=== PATIENT | female | born 1980 | race Caucasian/White ===

== ENCOUNTER 2024-06-22 11:51 | Emergency (ER) | payer SELFPAY ==
--- OUTSIDE RECORDS SUMMARY | 2024-06-22 11:56 | XMS_ITS | Patient Health Summary ---
Author Organization [facility] Address [address] [place] [address] Care Team Providers Care Scrap Crusher Name Role Phone Farhat Hodge MD Primary Care Provider [phone] Note from [facility],non-owned Affiliates and Associated Physician Practices is amultiple site organization consisting of ambulatory clinics and hospital sitesin [place], [place], [place] and [place]. This disclosure is being madepursuant to the Care Everywhere program and may not contain all information available regarding this patient. Last updated 18.[facility] Allergies * Cefaclor(Urticaria) -Medium Criticality * Carisoprodol(Urticaria) -Medium Criticality * Sulfa Drugs(Urticaria) -Medium Criticality Medications * Be aware that medications may not be up to date on this document. Alwaysverify current medications with the patient. * albuterol ER 12hr (VOSPIRE ER) 4 MG tablet Take 4 mg by mouth 2 times daily * fluticasone hfa 110 (FLOVENT HFA 110) 110 MCG/ACT inhaler Inhale 2 Puffs by mouth 2 times daily * triamcinolone (NASACORT AQ) 55 MCG/ACT nasal inhaler [place] 1 [place] into each nostril once daily * ALPRAZolam (XANAX) 0.5 MG tablet Take 0.5 mg by mouth 3 times daily as needed for Anxiety * omeprazole (PRILOSEC) 40 MG capsule Take 40 mg by mouth daily before breakfast Social History Tobacco Use Types Packs/Day Years Used Date Smoking Tobacco: Never Tobacco Cessation:Counseling Given: No Alcohol Use Standard Drinks/Week Comments No 0 (1 standard drink = 0.6 oz pur e alcohol) Sex and Gender Information Value Date Recorded Sex Assigned at Not on file Gender Identity Not on file Sexual Orientation Not on file Last Filed Vital Signs Vital Sign Reading Time Taken Comments Blood Pressure 133/65 03/06/2016 4:00 PM CDT Pulse 105 03/06/2016 3:50 PM CDT Temperature 36.8 C (98.2 F) 03/06/2016 4:03 PM CDT Respiratory Rate 12 03/06/2016 3:50 PM CDT Oxygen Saturation 100% 03/06/2016 3:50 PM CDT Inhaled Oxygen Concentration - - Weight 61.2 kg (135 lb) 03/06/2016 2:24 PM CDT Height 157.5 cm (5' 2 ) 03/06/2016 2:24 PM CDT Body Mass Index 24.69 03/06/2016 2:24 PM CDT Procedures * CARDIAC RHYTHM STRIP ORDER(Performed 03/07/2016) * XR CHEST 2VW(Performed 03/06/2016) Performed for Palpitations * URINALYSIS REFLEX MICROSCOPIC REFLEX CULTURE(Performed 03/06/2016) * TSH(Performed 03/06/2016) * CBC W AUTO DIFFERENTIAL(Performed 03/06/2016) * MAGNESIUM BLOOD(Performed 03/06/2016) * D-DIMER(Performed 03/06/2016) * COMPREHENSIVE METABOLIC PANEL(Performed 03/06/2016) * TROPONIN I(Performed 03/06/2016) * HCG URINE QUALITATIVE - POINT OF CARE(Performed 03/06/2016) * EKG 12-LEAD(Performed 03/06/2016) Performed for Palpitations Results * CARDIAC RHYTHM STRIP ORDER (03/07/2016 9:42 PM CDT) Narrative 03/07/2016 9:42 PM CDT Ordered by an unspecified provider. Scanned Document CARDIAC SERVICES ORD ERABLES * XR CHEST PA AND LATERAL (03/06/2016 3:01 PM CDT) Anatomical Region Laterality Modality Chest Radiographic Mima ging 03/06/2016 3:05 PM CDT Impressions 03/06/2016 3:06 PM CDT Clear lungs. Narrative 03/06/2016 3:06 PM CDT Chest x-ray 2 views. HISTORY: Palpitations. 2 views of the chest show normal heart size with normal vessels. Lungs are clear. Procedure Note Juan C Sweet MD - 03/06/2016 Chest x-ray 2 views. HISTORY: Palpitations. 2 views of the chest show normal heart size with normal vessels. Lungs are clear. IMPRESSION Clear lungs. Vishal Langston MD DIAGNOSTIC IMAGING O RDERABLES * URINALYSIS ROUTINE W/REFLEX TO CULTURE (03/06/2016 2:44 PM CDT) Color UA Yellow Straw, Yellow, Dark Yellow 03/06/2016 2:54 PM CDT [facility] Clarity UA Clear 03/06/2016 2:54 PM CDT [facility] Specific [place] UA <=1.005 1.005 - 1.030 03/06/2016 2:54 PM CDT [facility] pH UA 7.0 5.0 - 8.0 pH 03/06/2016 2:54 PM CDT [facility] Protein UA Negative Negative 03/06/2016 2:54 PM CDT [facility] Blood UA Negative Negative 03/06/2016 2:54 PM CDT [facility] Leukocyte UA Negative Negative 03/06/2016 2:54 PM CDT [facility] Nitrite UA Negative Negative 03/06/2016 2:54 PM CDT [facility] Glucose UA Negative Negative 03/06/2016 2:54 PM CDT [facility] Ketone UA Negative Negative 03/06/2016 2:54 PM CDT [facility] Bilirubin UA Negative Negative 03/06/2016 2:54 PM CDT [facility] Urobilinogen UA 0.2 0.1 - 1.0 EU/dL 03/06/2016 2:54 PM CDT [facility] Reflex Status Culture not indicated 03/06/2016 2:54 PM CDT [facility] Urine URINE SPECIMEN OBTAINED BY CLEAN CATCH PROCEDURE / Unknown 03/06/2016 2:44 PM CDT 03/06/2016 2:50 PM CDT Vishal Langston MD LAB - URINALYSIS ORD ERABLES [facility] [address] [place] [address] * TROPONIN I (03/06/2016 2:44 PM CDT) Pathologist [facility] [place] Troponin I <0.015 0.000 - 0.049 ng/mL 03/06/2016 3:10 PM CDT [facility] Blood BLOOD SPECIMEN / Unknown 03/06/2016 2:44 PM CDT 03/06/2016 2:50 PM CDT [facility] - 03/06/2016 3:10 PM CDT Note: Diagnosis of myocardial infarction requires symptoms of ischemia or EKG changes of ischemia and Troponin I >99th of normal (0.05 ng/mL). Troponin should be drawn on initial assessment and 3-6 hours later as clinically indicated. Any condition resulting in myocardial cell damage can increase cardiac troponin levels. In addition to myocardial infarction, these include but are not limited to congestive heart failure (CHF), arrhythmia, myocarditis, and non-cardiac related causes such as pulmonary embolism, renal failure and sepsis. Vishal Langston MD LAB - CHEMISTRY BOOM BELTRAN [facility] Organization Address City/State/[facility] Co de Phone Number [facility] [address] [place] [address] * D-DIMER (03/06/2016 2:44 PM CDT) [facility] D-Dimer 0.45 0.17 - 0.5 mg/L FEU 03/06/2016 3:03 PM CDT [facility] Blood BLOOD SPECIMEN / Unknown 03/06/2016 2:44 PM CDT 03/06/2016 2:50 PM CDT [facility] - 03/06/2016 3:03 PM CDT The [employer] D-Dimer assay is intended for use as an aid in diagnosis of venous thromboembolism [(VTE): deep vein thrombosis (DVT), pulmonary embolism (PE), and disseminated intravascular coagulation (DIC)], and has received U.S. Food and Drug Administration (FDA) approval to exclude VTE in patients with low or moderate pretest probability of PE or DVT (per Wells' rules). At a clinical cut-off value 0.50 mg/L FEU, the Negative Predictive Value of this assay is 99.8% for excluding PE and 100% for excluding DVT. A very low percentage of patients with VTE may yield D-Dimer results below the cut-off value. An elevated D-Dimer result has low specificity (40.4% for PE, 35.5% for DVT) and is a poor predictor of VTE. An elevated D-Dimer result may indicate DIC in the appropriate clinical setting. Results of this test should always be interpreted in conjunction with the patient's medical history, clinical presentation, and other findings. Vishal Langston MD LAB - COAGULATION OR DERABLES Performing Organization Address City/State/[facility] Co de Phone Number [facility] [address] [place] [address] * (ABNORMAL) CBC W AUTO DIFFERENTIAL (03/06/2016 2:44 PM CDT) WBC 5.7 4.4 - 10.7 x10E9/L 03/06/2016 2:52 PM CDT [facility] WBC Corrected x10E9/L 03/06/2016 2:52 PM CDT [facility] RBC 4.75 3.80 - 5.20 x10E12/L 03/06/2016 2:52 PM CDT [facility] Hemoglobin 13.8 12.0 - 15.6 gm/dL 03/06/2016 2:52 PM CDT [facility] Hematocrit 40.4 35.9 - 45.5 % 03/06/2016 2:52 PM CDT [facility] MCV 85.1 80.7 - 98.3 fl 03/06/2016 2:52 PM CDT [facility] MCH 29.1 26.7 - 34.0 pg 03/06/2016 2:52 PM CDT [facility] MCHC 34.2 30.8 - 35.9 gm/dL 03/06/2016 2:52 PM CDT [facility] Platelet Count 304 153 - 416 x10E9/L 03/06/2016 2:52 PM CDT [facility] RDW-CV 12.2 12.1 - 14.9 % 03/06/2016 2:52 PM CDT [facility] MPV 9.8 9.4 - 12.9 fl 03/06/2016 2:52 PM CDT [facility] Neutrophils % 72.7 44.0 - 73.0 % 03/06/2016 2:52 PM CDT [facility] Lymphocytes % 18.6(L) 20.0 - 43.0 % 03/06/2016 2:52 PM CDT [facility] Monocytes % 7.0 5.0 - 13.0 % 03/06/2016 2:52 PM CDT [facility] Eosinophils % 1.0 0.0 - 6.0 % 03/06/2016 2:52 PM CDT [facility] Basophils % 0.5 0.0 - 2.0 % 03/06/2016 2:52 PM CDT [facility] Immature Granulocytes 0.2 0 - 1 % 03/06/2016 2:52 PM CDT [facility] Neutrophil Absolute 4.17 2.01 - 7.14 x10E9/L 03/06/2016 2:52 PM CDT [facility] Lymphocytes Absolute 1.07 1.07 - 3.94 x10E9/L 03/06/2016 2:52 PM CDT [facility] Monocytes Absolute 0.40 0.26 - 1.07 x10E9/L 03/06/2016 2:52 PM CDT [facility] Eosinophils Absolute 0.06 0 - 0.47 x10E9/L 03/06/2016 2:52 PM CDT [facility] Basophils Absolute 0.03 0 - 0.08 x10E9/L 03/06/2016 2:52 PM CDT [facility] Immature Granulocytes Absolute 0.01 0.00 - 0.06 x10E9/L 03/06/2016 2:52 PM CDT [facility] nRBC Auto 0 /100 WBC 03/06/2016 2:52 PM CDT [facility] Blood BLOOD SPECIMEN / Unknown 03/06/2016 2:44 PM CDT 03/06/2016 2:50 PM CDT Vishal Langston MD LAB - HEMATOLOGY ORD ERABLES [facility] [address] [place] [address] * COMPREHENSIVE METABOLIC PANEL (03/06/2016 2:44 PM CDT) [facility] Glucose 105 74 - 106 mg/dL 03/06/2016 3:10 PM CDT [facility] Sodium 141 136 - 145 mmol/L 03/06/2016 3:10 PM CDT [facility] Potassium 3.7 3.5 - 5.1 mmol/L 03/06/2016 3:10 PM CDT [facility] Chloride 106 98 - 107 mmol/L 03/06/2016 3:10 PM CDT [facility] CO2 28 22 - 31 mmol/L 03/06/2016 3:10 PM CDT [facility] Calcium 9.3 8.5 - 10.1 mg/dL 03/06/2016 3:10 PM CDT [facility] Anion Gap 7 5 - 20 mmol/L 03/06/2016 3:10 PM CDT [facility] BUN 7 7 - 21 mg/dL 03/06/2016 3:10 PM CDT [facility] Creatinine 0.74 0.50 - 1.30 mg/dL 03/06/2016 3:10 PM CDT [facility] Alkaline Phosphatase 76 38 - 126 U/L 03/06/2016 3:10 PM CDT [facility] ALT 24 13 - 61 U/L 03/06/2016 3:10 PM CDT [facility] AST 13 5 - 40 U/L 03/06/2016 3:10 PM CDT [facility] Protein Total 8.0 6.4 - 8.2 gm/dL 03/06/2016 3:10 PM CDT [facility] Albumin 4.0 3.4 - 5.0 gm/dL 03/06/2016 3:10 PM CDT [facility] Bilirubin Total 0.3 0.2 - 1.0 mg/dL 03/06/2016 3:10 PM CDT [facility] eGFR by MDRD >60 >60 mL/min/1.7 3m2 03/06/2016 3:10 PM CDT [facility] eGFR by MDRD >60 >60 mL/min/1.7 3m2 03/06/2016 3:10 PM CDT [facility] Blood BLOOD SPECIMEN / Unknown 03/06/2016 2:44 PM CDT 03/06/2016 2:50 PM CDT Vishal Langston MD LAB - CHEMISTRY BOOM BELTRAN [facility] Organization Address City/State/ZIP Co de Phone Number [facility] [address] [place] [address] * MAGNESIUM BLOOD (03/06/2016 2:44 PM CDT) Pathologist [facility] [place] Magnesium 2.3 1.6 - 2.6 mg/dL 03/06/2016 3:10 PM CDT [facility] Blood BLOOD SPECIMEN / Unknown 03/06/2016 2:44 PM CDT 03/06/2016 2:50 PM CDT Vishal Langston MD LAB - CHEMISTRY BOOM BELTRAN Performing Organization Address City/[facility]/ZIP Co de Phone Number [facility] [address] [place] [address] * TSH (03/06/2016 2:44 PM CDT) [facility] TSH 1.41 0.358 - 3.740 uIU/mL 03/06/2016 3:15 PM CDT [facility] Blood BLOOD SPECIMEN / Unknown 03/06/2016 2:44 PM CDT 03/06/2016 2:50 PM CDT Vishal Langston MD LAB - CHEMISTRY BOOM BELTRAN Performing Organization Address [facility] Co de Phone Number [facility] [address] [place] [address] * HCG URINE QUALITATIVE - POINT OF CARE (IP) (03/06/2016 2:43 PM CDT) [facility] HCG Qual Urine Negative Negative [facility] POCT TESTING QC Verified Yes Yes [facility] POC T TESTING Urine URINE / Unknown 03/06/2016 2 :43 PM CDT Vishal Langston MD LAB - POINT OF CARE ORDERABLES Performing Organization Address [facility] Co de Phone Number [facility] POCT TESTING [address] [place] [address] * EKG 12-LEAD (03/06/2016 2:25 PM CDT) [facility] Ventricular Rate 130 BPM [facility] MUSE Atrial Rate 130 BPM [facility] P-R Interval 150 ms [facility] MUSE QRS Duration ms 78 ms [facility] MUSE Q-T Interval ms 300 ms [facility] MUSE QTC Calculation (Bezet) 441 ms [facility] MUSE Calculated P [place] 64 degrees [facility] MUSE Calculated R [place] 35 degrees [facility] MUSE Calculated T [place] 72 degrees [facility] Interpretation EKG SINUS TACHYCARDIA POSSIBLE LEFT ATRIAL ENLARGEMENT BORDERLINE ECG NO PREVIOUS ECGS AVAILABLE Confirmed by MD SHABBIR, CURTIS Pino ([id number]) on 03/07/2016 7:21:51 AM [facility] MUSE 03/06/2016 2:25 PM CDT 03/07/2016 7:21 AM CDT Vishal Langston MD ECG ORDERABLES [facility] M[facility] Care Teams Scrap Crusher Relationship Specialty Start Date End Date Farhat Hodge MD [facility] [place] [address] PCP - General Family Medicine 03/06/16
--- OUTSIDE RECORDS SUMMARY | 2024-06-22 11:56 | XMS_ITS | Clinical Summary ---
Author Organization [facility] Address [address] [place] [address] Care Team Providers Care Gate Agent Name Role Phone Farhat Hodge MD Primary Care Provider [phone] Source Comments [facility],non-owned Affiliates and Associated Physician Practices is amultiple site organization consisting of ambulatory clinics and hospital sitesin [place], [place], [place] and [place]. This disclosure is being madepursuant to the Care Everywhere program and may not contain all information available regarding this patient. Last updated 18.[facility] Allergies Active Allergy Reactions Criticality Noted Date Comments Cefaclor Urticaria Medium 03/06/2016 Carisoprodol Urticaria Medium 03/06/2016 Sulfa Drugs Urticaria Medium 03/06/2016 Medications * Be aware that medications may not be up to date on this document. Alwaysverify current medications with the patient. Medication Sig Dispensed Refills Start Date End Date Status albuterol ER 12hr (VOSPIRE ER) 4 MG tablet Take 4 mg by mouth 2 times daily Active fluticasone hfa 110 (FLOVENT HFA 110) 110 MCG/ACT inhaler Inhale 2 Puffs by mouth 2 times daily Active triamcinolone (NASACORT AQ) 55 MCG/ACT nasal inhaler [place] 1 [place] into each nostril once daily Active ALPRAZolam (XANAX) 0.5 MG tablet Take 0.5 mg by mouth 3 times daily as needed for Anxiety Active omeprazole (PRILOSEC) 40 MG capsule Take 40 mg by mouth daily before breakfast Active Social History Tobacco Use Types Packs/Day Years [...] Mass Index 24.69 03/06/2016 2:24 PM CDT Plan of Treatment Health Maintenance Due Date Last Done Comments LIPID TESTING 1979 MAMMOGRAM 1979 PAP SMEAR 1979 HIV SCREENING 08/29/1994 HEPATITIS C SCREENING 08/25/1997 DTAP/TDAP/TD VACCINES (1 - Tdap) 08/29/1998 HEPATITIS B VACCINE (1 of 3 - 19+ 3-dose series) 08/29/1998 COVID-19 VACCINE ( - 2023-2 5 season) 2024 INFLUENZA VACCINE (#1) 2024 DEPRESSION SCREENING 05/14/2024 ZOSTER VACCINE (1 of 2) 08/29/2029 HIB VACCINE Aged Out No longer eligi ble based on patient's age to complete this topic HPV VACCINE Aged Out No longer eligi ble based on patient's age to complete this topic MENINGOCOCCAL (Group B) VACCINE Aged Out No longer eligible based on patient's age to complete this topic MENINGOCOCCAL VACCINE Aged Out No nir otto eligible based on patient's age to complete this topic PNEUMOCOCCAL VACCINE Aged Out No long er eligible based on patient's age to complete this topic Care Teams Gate Agent Relationship Specialty Start Date End Date Farhat Hodge MD [address] [place] [id number] PCP - General Family Medicine 03/06/16
--- OUTSIDE RECORDS SUMMARY | 2024-06-22 11:56 | XMS_ITS | Clinical Summary ---
Author Organization [facility] [address] Address [address] [place] [address] Phone Care Team Providers Care Search Lead Name Role Phone Farhat Hodge MD Primary Care Provider [phone] Allergies Active Allergy Reactions Criticality Noted Date Comments Carisoprodol Hives Medium 04/17/2024 Cefaclor Hives Medium 04/17/2024 Sulfa Unknown 04/17/2024 Grandmother and mother allergic, has always been told not to take. Medications nitrofurantoin monohydrate (MACROBID) 100 mg capsule Take 1 capsule (100 mg total) by mouth 2 (two) times a day 10 capsule 04/17/2024 Active Encounters Date Type Department Care Team Description 04/17/2024 7:35 PM MEDICAID PLAN COMPLIANCE DIRECTOR - 04/17/2024 8:55 PM [facility] Emergency [address] [address] Urinary tract infection in female (Primary Dx); Uncontrolled hypertension Discharge Disposition: Discharge to home or self care from Last 3 Months Social History Tobacco Use Types Packs/Day Years Used Date Smoking Tobacco: Never Assessed Personal Safety Answer Date Recorded Have you ever been in or are you currently in a harmful physical or emotional relationship or is someone making you feel afraid or unsafe? Denies 04/17/2024 Comments Unknown Sex and Gender Information Value Date Recorded Sex Assigned at Not on file Legal Sex Female 8:13 AM CDT Gender Identity Not on file Sexual Orientation Not on file Last Filed Vital Signs Vital Sign Reading Time Taken Comments Blood Pressure 148/79 04/17/2024 8:20 PM MEDICAID PLAN COMPLIANCE DIRECTOR Pulse 87 04/17/2024 8:20 PM MEDICAID PLAN COMPLIANCE DIRECTOR Temperature 37.1 C (98.8 F) 04/17/2024 2:18 PM MEDICAID PLAN COMPLIANCE DIRECTOR Respiratory Rate 16 04/17/2024 8:20 PM MEDICAID PLAN COMPLIANCE DIRECTOR Oxygen Saturation 97% 04/17/2024 8:20 PM MEDICAID PLAN COMPLIANCE DIRECTOR Inhaled Oxygen Concentration - - Weight 60 kg (132 lb 4.4 oz) 04/17/2024 2:18 PM MEDICAID PLAN COMPLIANCE DIRECTOR Height 157.5 cm (5' 2 ) 04/17/2024 2:18 PM MEDICAID PLAN COMPLIANCE DIRECTOR Body Mass Index 24.19 04/17/2024 2:18 PM MEDICAID PLAN COMPLIANCE DIRECTOR Plan of Treatment Health Maintenance Due Date Last Done Comments Breast Cancer Screening-Mammogram 1979 Cervical Cancer Screening 1979 Depression Screening 1979 Hepatitis C Screening 1979 DTaP/Tdap/Td Vaccine (1 - Tdap) 08/29/1990 Varicella Vaccines (1 of 2 - 13+ 2-dose series) 08/29/1992 Hepatitis B Screening 08/29/1997 Regular Well Visit/Exam 18-64 08/29/1997 Covid-19 Vaccine (3 - 2023-2 5 season) 2024 05/09/2021, 04/12/2021 Influenza Vaccine (#1) 2024 HPV Vaccines Aged Out No longer eligi ble based on patient's age to complete this topic Pneumococcal vaccine <65 Aged Out No longer eligible based on patient's age to complete this topic Procedures Procedure Name Priority Date/Time Associated Diagnosis Comments TROPONIN T HIGH-SENSITIVITY 2-HOUR Timed 04/17/2024 5:24 PM MEDICAID PLAN COMPLIANCE DIRECTOR URINALYSIS, MICROSCOPIC ONLY STAT 04/17/2024 3:00 PM MEDICAID PLAN COMPLIANCE DIRECTOR URINALYSIS AND REFLEX TO MICROSCOPIC AND CULTURE STAT 04/17/2024 3:00 PM MEDICAID PLAN COMPLIANCE DIRECTOR EGFR STAT 04/17/2024 2:56 PM MEDICAID PLAN COMPLIANCE DIRECTOR DIFFERENTIAL AUTO STAT 04/17/2024 2:5 6 PM MEDICAID PLAN COMPLIANCE DIRECTOR TROPONIN T HIGH-SENSITIVITY SERIES (BASELINE, 2HR, 4HR, 6HR) STAT 04/17/2024 2:56 PM MEDICAID PLAN COMPLIANCE DIRECTOR COMPREHENSIVE METABOLIC PANEL STAT 04/17/2024 2:56 PM MEDICAID PLAN COMPLIANCE DIRECTOR CBC WITH AUTO DIFFERENTIAL STAT 04/17/2024 2:56 PM MEDICAID PLAN COMPLIANCE DIRECTOR ECG 12-LEAD STAT 04/17/2024 2:49 PM MEDICAID PLAN COMPLIANCE DIRECTOR from Last 3 Months Results * Troponin T high-sensitivity 2-hour (04/17/2024 5:24 PM MEDICAID PLAN COMPLIANCE DIRECTOR) Trop T hs <6 <=14 ng/L Comment: Interpretive Data For further hscTnT resources including the diagnostic algorithm and an aid in interpretation, copy and paste this link: [email or web address].testcatalog.org/show/[email or web address] Current Interpretive Data last revised 2020. Trop T hs delta 0 ng/L [place] Trop T hs interp Insignificant [place] Blood 04/17/2024 5:24 PM MEDICAID PLAN COMPLIANCE DIRECTOR 04/17/2024 5:32 PM MEDICAID PLAN COMPLIANCE DIRECTOR Abbie COLE LAB BLOOD ORDERABLES Final Result [place] [address] [facility] Department [place] [address] * (ABNORMAL) Urinalysis reflex to microscopic and culture Urine (04/17/2024 3:00 PM MEDICAID PLAN COMPLIANCE DIRECTOR) Color, ur Straw Yellow Clarity, ur Clear Clear [place] Specific gravity, ur 1.004 1.003 - 1.030 [place] pH, urine 6.5 [place] Comment: Interpretive Data U rine pH is affected by diet, medications, systemic acid-base disturbances, and renal tubular function. pH may affect urinary stone formation. For example, urine pH below 6.0 may help reduce the tendency for calcium phosphate stones and pH greater than 6.0 may reduce the tendency for uric acid stone formation. Source: [facility] Current Interpretive Data was last revised on 2017 Protein, ur ql Negative Negative [facility] Glucose, ur ql Negative Negative [facility] Ketones, ur Negative Negative [facility] Bilirubin, ur Negative Negative [facility] Blood, ur Negative Negative [facility] Urobilinogen, ur <2.0 <2.0 mg/dL [facility] Nitrite, ur Negative Negative [facility] Leukocyte esterase, ur 2+(A) Negative [facility] UA reflex comment Reflex to microscopic UA will be performed. [facility] Urine 04/17/2024 3:00 PM MEDICAID PLAN COMPLIANCE DIRECTOR 04/17/2024 3:08 PM MEDICAID PLAN COMPLIANCE DIRECTOR Abbie COLE LAB MICROBIOLOGY - GENERAL ORDERABLES Final Result Performing Organization Address [facility] de Phone Number [address] [address] * (ABNORMAL) Urinalysis, microscopic only (04/17/2024 3:00 PM MEDICAID PLAN COMPLIANCE DIRECTOR) WBC, ur 6-10(A) 0 - 5 /HPF RBC, ur 0-2 0 - 2 /HPF [facility] Epithelial cells, squamous, ur 6-10(A) 0 - 5 /HPF [facility] Comment:Suggestive of contam ination. Consider recollection by clean catch. Bacteria, ur 1+(A) [facility] Culture Reflex Comment Reflex conditions for urine culture (WBC >10) not met. [facility] Urine 04/17/2024 3:00 PM MEDICAID PLAN COMPLIANCE DIRECTOR 04/17/2024 3:08 PM MEDICAID PLAN COMPLIANCE DIRECTOR Abbie COLE LAB URINE ORDERABLES Final Result Performing Organization Address [facility] Co de Phone Number [address] [address] * Troponin T high-sensitivity series (baseline, 2hr, 4hr, 6hr) (04/17/2024 2:56 PM MEDICAID PLAN COMPLIANCE DIRECTOR) Trop T hs <6 <=14 ng/L Comment: Interpretive Data For further hscTnT resources including the diagnostic algorithm and an aid in interpretation, copy and paste this link: https://nrl.testcatalog.org/show/[email or web address] Current Interpretive Data last revised 2020. Blood 04/17/2024 2:56 PM MEDICAID PLAN COMPLIANCE DIRECTOR 04/17/2024 2:59 PM MEDICAID PLAN COMPLIANCE DIRECTOR Abbie COLE LAB BLOOD ORDERABLES Final Result Performing Organization Address [facility] Co de Phone Number [place] [address] [address] * eGFR (04/17/2024 2:56 PM MEDICAID PLAN COMPLIANCE DIRECTOR) [facility] eGFR >90 >=60 mL/min/1. 73 m2 Comment: Interpretive Data Reference Interval Normal >/= 90 mL/min/1.73m2 Mildly decreased* 60 - 89 mL/min/1.73m2 Mildly to moderately decreased 45 - 59 mL/min/1.73m2 Moderately to severely decreased 30 - 44 mL/min/1.73m2 Severely decreased 15 - 29 mL/min/1.73m2 Kidney Failure < 15 mL/min/1.73m2 *Relative to young adult level Estimated glomerular filtration rate is determined by the 2020 CKD-EPI equation recommended by the National Kidney Foundation (A Unifying Approach to GFR Estimation: Recommendations of the NKF-ASK Task Force on Reassessing the Inclusion of Race in Diagnosing Kidney Disease, JASN 2020). The CKD-EPI equation should not be used for patients with unstable renal function and has not been validated in children and those over 70. Current interpretive data was last reviewed 2021. Blood 04/17/2024 2:56 PM MEDICAID PLAN COMPLIANCE DIRECTOR 04/17/2024 2:59 PM MEDICAID PLAN COMPLIANCE DIRECTOR Abbie COLE LAB BLOOD ORDERABLES Final Result Performing Organization Address [facility] Co de Phone Number [place] [address] [place] [employer] [place] [address] * Differential, auto (04/17/2024 2:56 PM MEDICAID PLAN COMPLIANCE DIRECTOR) Neutrophil abs 5.6 1.5 - 6.5 K/cumm Imm gran abs 0.0 0.0 - 0.1 K/cumm [facility] Lymphocyte abs 1.2 0.8 - 3.3 K/cumm [facility] Monocyte abs 0.5 0.2 - 0.8 K/cumm [facility] Eosinophil abs 0.1 0.0 - 0.5 K/cumm [facility] Basophil abs 0.0 0.0 - 0.1 K/cumm [facility] Neutrophil pct 75.6 % [facility] Comment: Interpretive Data Percent cell count reference ranges are not reported, since discordance with absolute values may lead to misinterpretation of CBC data. Current Interpretive Data was last revised on 2017. Imm gran pct 0.3 % [facility] Comment: Interpretive Data Percent cell count reference ranges are not reported, since discordance with absolute values may lead to misinterpretation of CBC data. Current Interpretive Data was last revised on 2017. Lymphocyte pct 16.0 % [facility] Comment: Interpretive Data Percent cell count reference ranges are not reported, since discordance with absolute values may lead to misinterpretation of CBC data. Current Interpretive Data was last revised on 2017. Monocyte pct 6.5 % [facility] Comment: Interpretive Data Percent cell count reference ranges are not reported, since discordance with absolute values may lead to misinterpretation of CBC data. Current Interpretive Data was last revised on 2017. Eosinophil pct 1.2 % [facility] Comment: Interpretive Data Percent cell count reference ranges are not reported, since discordance with absolute values may lead to misinterpretation of CBC data. Current Interpretive Data was last revised on 2017. Basophil pct 0.4 % [facility] Comment: Interpretive Data Percent cell count reference ranges are not reported, since discordance with absolute values may lead to misinterpretation of CBC data. Current Interpretive Data was last revised on 2017. Blood 04/17/2024 2:56 PM MEDICAID PLAN COMPLIANCE DIRECTOR 04/17/2024 2:59 PM MEDICAID PLAN COMPLIANCE DIRECTOR Abbie COLE LAB BLOOD ORDERABLES Final Result [place] [id number] [facility] [place] [address] * CBC with auto differential (04/17/2024 2:56 PM MEDICAID PLAN COMPLIANCE DIRECTOR) [facility] WBC 7.4 3.8 - 9.9 K/cumm Hgb 13.9 11.9 - 15.5 g/dL [facility] Hct 41.2 35.6 - 45.5 % [facility] Plt 296 150 - 400 K/cumm [facility] MPV 9.6 9.1 - 12.3 fL [facility] RBC 4.68 3.90 - 5.20 M/cumm [facility] MCV 88.0 81.3 - 96.4 fL [facility] MCH 29.7 27.1 - 33.3 pg [facility] MCHC 33.7 32.3 - 35.7 g/dL [facility] RDW CV 12.4 11.1 - 14.9 % [facility] RDW SD 39.7 35.7 - 48.1 fL [facility] NRBC abs 0.00 0.00 - 0.01 K/cumm [facility] Blood 04/17/2024 2:56 PM MEDICAID PLAN COMPLIANCE DIRECTOR 04/17/2024 2:59 PM MEDICAID PLAN COMPLIANCE DIRECTOR Abbie COLE LAB BLOOD ORDERABLES Final Result [address] [place] [address] * (ABNORMAL) Comprehensive metabolic panel (04/17/2024 2:56 PM MEDICAID PLAN COMPLIANCE DIRECTOR) [facility] Sodium 142 135 - 145 mmol/L Potassium, pl 3.1(L) 3.3 - 4.9 mmol/L [facility] Chloride 102 97 - 110 mmol/L [facility] CO2 28 22 - 32 mmol/L [facility] Anion gap 12 2 - 15 mmol/L [facility] BUN 8 6 - 25 mg/dL [facility] Creatinine 0.59(L) 0.60 - 1.10 mg/dL [facility] Glucose 100 70 - 199 mg/dL [facility] Comment: Interpretive Data Fasting glucose >/= 126 mg/dl is diagnostic for diabetes. Fasting is defined as no caloric intake for at least 8 hours. Fasting glucose between 100 mg/dl to 125 mg/dl is diagnostic of prediabetes. In a patient with classic symptoms of hyperglycemia or hyperglycemic crisis, a random glucose >/= 200 mg/dl is diagnostic for diabetes. In the absence of unequivocal hyperglycemia, results should be confirmed by repeat testing. The classification and Diagnosis of Diabetes Diabetes Care 2021; 46: S19-S40. Current interpretive data was last revised 2022. Calcium 10.1 8.5 - 10.3 mg/dL [facility] Bilirubin, total 0.6 0.1 - 1.2 mg/dL [facility] Protein, pl 7.8 6.5 - 8.5 g/dL [facility] Albumin 4.8 3.5 - 5.0 g/dL [facility] Alk phos 63 40 - 130 Units/L [facility] ALT 13 7 - 45 Units/L [facility] AST 15 10 - 45 Units/L [facility] Blood 04/17/2024 2:56 PM MEDICAID PLAN COMPLIANCE DIRECTOR 04/17/2024 2:59 PM MEDICAID PLAN COMPLIANCE DIRECTOR Abbie COLE LAB BLOOD ORDERABLES Final Result [place] [address] [facility] Department of Laboratories [place], [place] [id number] * ECG 12 lead (04/17/2024 2:49 PM MEDICAID PLAN COMPLIANCE DIRECTOR) Pathologist [facility] Ventricular Rate EKG/Min 95 BPM [facility] Atrial Rate 95 BPM [facility] UT-Interval (MSEC) 140 ms [facility] QRS-Interval (MSEC) 84 ms [facility] QT-Interval (MSEC) 362 ms [facility] QTc 454 ms [facility] P [place] 78 degrees [facility] R [place] 52 degrees [facility] T [place] 64 degrees [facility] Diagnosis Normal sinus rhythm with sinus arrhythmia Possible Left atrial enlargement Borderline ECG No previous ECGs available Confirmed by GRACIELA VALLES M.D. ([id number]) on 04/17/2024 5:09:53 PM [facility] 04/17/2024 2:49 PM MEDICAID PLAN COMPLIANCE DIRECTOR 04/17/2024 5:09 PM MEDICAID PLAN COMPLIANCE DIRECTOR us Abbie COLE ECG ORDERABLES Final Resu lt [facility] from Last 3 Months Insurance [employer] Care Teams Search Lead Relationship Specialty Start Date End Date Farhat Hodge MD [address] [place] [id number] PCP - General Family Medicine 04/24/18
--- OUTSIDE RECORDS SUMMARY | 2024-06-22 11:56 | XMS_ITS | Referral Summary ---
Author Organization [facility] [address] Address [address] [place] [address] Phone Care Team Providers Care Microsoft Access Developer Name Role Phone Farhat Hodge MD Primary Care Provider [phone] Encounters Date Type Department Care Team Description 04/17/2024 7:35 PM ROTARY DRYER OPERATOR - 04/17/2024 8:55 PM [facility] Emergency [facility] [address] [place] [address] Urinary tract infection in female (Primary Dx); Uncontrolled hypertension Discharge Disposition: Discharge to home or self care from Last 3 Months Allergies Active Allergy Reactions Criticality Noted Date Comments Carisoprodol Hives Medium 04/17/2024 Cefaclor Hives Medium 04/17/2024 Sulfa Unknown 04/17/2024 Grandmother and mother allergic, has always been told not to take. Medications nitrofurantoin monohydrate (MACROBID) 100 mg capsule Take 1 capsule (100 mg total) by mouth 2 (two) times a day 10 capsule 04/17/2024 Active Social History Tobacco Use Types Packs/Day [...] Comments Blood Pressure 148/79 04/17/2024 8:20 PM ROTARY DRYER OPERATOR Pulse 87 04/17/2024 8:20 PM ROTARY DRYER OPERATOR Temperature 37.1 C (98.8 F) 04/17/2024 2:18 PM ROTARY DRYER OPERATOR Respiratory Rate 16 04/17/2024 8:20 PM ROTARY DRYER OPERATOR Oxygen Saturation 97% 04/17/2024 8:20 PM ROTARY DRYER OPERATOR Inhaled Oxygen Concentration - - Weight 60 kg (132 lb 4.4 oz) 04/17/2024 2:18 PM ROTARY DRYER OPERATOR Height 157.5 cm (5' 2 ) 04/17/2024 2:18 PM ROTARY DRYER OPERATOR Body Mass Index 24.19 04/17/2024 2:18 PM ROTARY DRYER OPERATOR Plan of Treatment Not on file Procedures Procedure Name Priority Date/Time Associated Diagnosis Comments TROPONIN T HIGH-SENSITIVITY 2-HOUR Timed 04/17/2024 5:24 PM ROTARY DRYER OPERATOR URINALYSIS, MICROSCOPIC ONLY STAT 04/17/2024 3:00 PM ROTARY DRYER OPERATOR URINALYSIS AND REFLEX TO MICROSCOPIC AND CULTURE STAT 04/17/2024 3:00 PM ROTARY DRYER OPERATOR EGFR STAT 04/17/2024 2:56 PM ROTARY DRYER OPERATOR DIFFERENTIAL AUTO STAT 04/17/2024 2:5 6 PM ROTARY DRYER OPERATOR TROPONIN T HIGH-SENSITIVITY SERIES (BASELINE, 2HR, 4HR, 6HR) STAT 04/17/2024 2:56 PM ROTARY DRYER OPERATOR COMPREHENSIVE METABOLIC PANEL STAT 04/17/2024 2:56 PM ROTARY DRYER OPERATOR CBC WITH AUTO DIFFERENTIAL STAT 04/17/2024 2:56 PM ROTARY DRYER OPERATOR ECG 12-LEAD STAT 04/17/2024 2:49 PM ROTARY DRYER OPERATOR from Last 3 Months Results * Troponin T high-sensitivity 2-hour (04/17/2024 5:24 PM ROTARY DRYER OPERATOR) Trop T hs <6 <=14 ng/L Comment: Interpretive Data For further hscTnT resources including the diagnostic algorithm and an aid in interpretation, copy and paste this link: https://nrl.testcatalog.org/show/hsTrop Current Interpretive Data last revised 2020. Trop T hs delta 0 ng/L [facility] Trop T hs interp Insignificant [facility] Blood 04/17/2024 5:24 PM ROTARY DRYER OPERATOR 04/17/2024 5:32 PM ROTARY DRYER OPERATOR Abbie COLE LAB BLOOD ORDERABLES Final Result Performing Organization Address [facility] Co de Phone Number TOÑITO [address] [facility] [place] [address] * (ABNORMAL) Urinalysis reflex to microscopic and culture Urine (04/17/2024 3:00 PM ROTARY DRYER OPERATOR) Color, ur Straw Yellow Clarity, ur Clear Clear [facility] Specific gravity, ur 1.004 1.003 - 1.030 [facility] pH, urine 6.5 [facility] Comment: Interpretive Data U rine pH is affected by diet, medications, systemic acid-base disturbances, and renal tubular function. pH may affect urinary stone formation. For example, urine pH below 6.0 may help reduce the tendency for calcium phosphate stones and pH greater than 6.0 may reduce the tendency for uric acid stone formation. Source: [facility] Current Interpretive Data was last revised on 2017 Protein, ur ql Negative Negative [facility] Glucose, ur ql Negative Negative [facility] Ketones, ur Negative Negative [facility] Bilirubin, ur Negative Negative [facility] Blood, ur Negative Negative [facility] Urobilinogen, ur <2.0 <2.0 mg/dL [facility] Nitrite, ur Negative Negative [facility] Leukocyte esterase, ur 2+(A) Negative [facility] UA reflex comment Reflex to microscopic UA will be performed. TOÑITO Urine 04/17/2024 3:00 PM ROTARY DRYER OPERATOR 04/17/2024 3:08 PM ROTARY DRYER OPERATOR Abbie COLE LAB MICROBIOLOGY - GENERAL ORDERABLES Final Result Performing Organization Address [facility]/ZIP Co de Phone Number [address] [address] * (ABNORMAL) Urinalysis, microscopic only (04/17/2024 3:00 PM ROTARY DRYER OPERATOR) [facility] WBC, ur 6-10(A) 0 - 5 /HPF RBC, ur 0-2 0 - 2 /HPF [facility] Epithelial cells, squamous, ur 6-10(A) 0 - 5 /HPF [facility] Comment:Suggestive of contam ination. Consider recollection by clean catch. Bacteria, ur 1+(A) [facility] Culture Reflex Comment Reflex conditions for urine culture (WBC >10) not met. [facility] Urine 04/17/2024 3:00 PM ROTARY DRYER OPERATOR 04/17/2024 3:08 PM ROTARY DRYER OPERATOR Abbie COLE LAB URINE ORDERABLES Final Result Performing Organization Address [facility] de Phone Number [address] [address] * Troponin T high-sensitivity series (baseline, 2hr, 4hr, 6hr) (04/17/2024 2:56 PM ROTARY DRYER OPERATOR) [facility] Trop T hs <6 <=14 ng/L Comment: Interpretive Data For further hscTnT resources including the diagnostic algorithm and an aid in interpretation, copy and paste this link: https://nrl.testcatalog.org/show/hsTrop Current Interpretive Data last revised 2020. Blood 04/17/2024 2:56 PM ROTARY DRYER OPERATOR 04/17/2024 2:59 PM ROTARY DRYER OPERATOR Abbie COLE LAB BLOOD ORDERABLES Final Result Performing Organization Address [facility] Co de Phone Number [address] [address] * eGFR (04/17/2024 2:56 PM ROTARY DRYER OPERATOR) [facility] eGFR >90 >=60 mL/min/1. 73 m2 Comment: [...] of Race in Diagnosing Kidney Disease, JASN 202). The CKD-EPI equation should not be used for patients with unstable renal function and has not been validated in children and those over 70. Current interpretive data was last reviewed 2021. Blood 04/17/2024 2:56 PM ROTARY DRYER OPERATOR 04/17/2024 2:59 PM ROTARY DRYER OPERATOR Abbie COLE LAB BLOOD ORDERABLES Final Result [facility] [address] [facility] Department [place] [address] * Differential, auto (04/17/2024 2:56 PM ROTARY DRYER OPERATOR) Pathologist [facility] Neutrophil abs 5.6 1.5 - 6.5 K/cumm Imm gran abs 0.0 0.0 - 0.1 K/cumm [facility] Lymphocyte abs 1.2 0.8 - 3.3 K/cumm [facility] Monocyte abs 0.5 0.2 - 0.8 K/cumm [facility] Eosinophil abs 0.1 0.0 - 0.5 K/cumm [facility] Basophil abs 0.0 0.0 - 0.1 K/cumm [facility] Neutrophil pct 75.6 % [facility] Comment: Interpretive Data Percent cell count reference ranges are not reported, since discordance with absolute values may lead to misinterpretation of CBC data. Current Interpretive Data was last revised on 2017. Imm gran pct 0.3 % [facility] Comment: Interpretive Data Percent cell count reference ranges are not reported, since discordance with absolute values may lead to misinterpretation of CBC data. Current Interpretive Data was last revised on 2017. Lymphocyte pct 16.0 % [facility] Comment: Interpretive Data Percent cell count reference ranges are not reported, since discordance with absolute values may lead to misinterpretation of CBC data. Current Interpretive Data was last revised on 2017. Monocyte pct 6.5 % [facility] Comment: Interpretive Data Percent cell count reference ranges are not reported, since discordance with absolute values may lead to misinterpretation of CBC data. Current Interpretive Data was last revised on 2017. Eosinophil pct 1.2 % [facility] Comment: Interpretive Data Percent cell count reference ranges are not reported, since discordance with absolute values may lead to misinterpretation of CBC data. Current Interpretive Data was last revised on 2017. Basophil pct 0.4 % [facility] Comment: Interpretive Data Percent cell count reference ranges are not reported, since discordance with absolute values may lead to misinterpretation of CBC data. Current Interpretive Data was last revised on 2017. Blood 04/17/2024 2:56 PM ROTARY DRYER OPERATOR 04/17/2024 2:59 PM ROTARY DRYER OPERATOR Abbie COLE LAB BLOOD ORDERABLES Final Result [facility] [address] [facility] Department [place] [address] * CBC with auto differential (04/17/2024 2:56 PM ROTARY DRYER OPERATOR) WBC 7.4 3.8 - 9.9 K/cumm Hgb 13.9 11.9 - 15.5 g/dL [facility] Hct 41.2 35.6 - 45.5 % [facility] Plt 296 150 - 400 K/cumm [facility] MPV 9.6 9.1 - 12.3 fL [facility] RBC 4.68 3.90 - 5.20 M/cumm [facility] MCV 88.0 81.3 - 96.4 fL [facility] MCH 29.7 27.1 - 33.3 pg [facility] MCHC 33.7 32.3 - 35.7 g/dL [facility] RDW CV 12.4 11.1 - 14.9 % [facility] RDW SD 39.7 35.7 - 48.1 fL [facility] NRBC abs 0.00 0.00 - 0.01 K/cumm [facility] Blood 04/17/2024 2:56 PM ROTARY DRYER OPERATOR 04/17/2024 2:59 PM ROTARY DRYER OPERATOR Abbie COLE LAB BLOOD ORDERABLES Final Result [facility] [address] Department [place] [address] * (ABNORMAL) Comprehensive metabolic panel (04/17/2024 2:56 PM ROTARY DRYER OPERATOR) Sodium 142 135 - 145 mmol/L Potassium, pl 3.1(L) 3.3 - 4.9 mmol/L [facility] Chloride 102 97 - 110 mmol/L [facility] CO2 28 22 - 32 mmol/L [facility] Anion gap 12 2 - 15 mmol/L [facility] BUN 8 6 - 25 mg/dL [facility] Creatinine 0.59(L) 0.60 - 1.10 mg/dL [facility] Glucose 100 70 - 199 mg/dL [facility] Comment: Interpretive Data Fasting glucose [...] classification and Diagnosis of Diabetes Diabetes Care 202; 46: S19-S40. Current interpretive data was last revised 2022. Calcium 10.1 8.5 - 10.3 mg/dL [facility] Bilirubin, total 0.6 0.1 - 1.2 mg/dL [facility] Protein, pl 7.8 6.5 - 8.5 g/dL [facility] Albumin 4.8 3.5 - 5.0 g/dL [facility] Alk phos 63 40 - 130 Units/L [facility] ALT 13 7 - 45 Units/L [facility] AST 15 10 - 45 Units/L [facility] Blood 04/17/2024 2:56 PM ROTARY DRYER OPERATOR 04/17/2024 2:59 PM ROTARY DRYER OPERATOR Abbie COLE LAB BLOOD ORDERABLES Final Result Performing Organization Address [facility] de Phone Number TOÑITO [address] Department [place] [address] * ECG 12 lead (04/17/2024 2:49 PM ROTARY DRYER OPERATOR) Ventricular Rate EKG/Min 95 BPM [facility] Atrial Rate 95 BPM [facility] PA-Interval (MSEC) 140 ms [facility] QRS-Interval (MSEC) 84 ms [facility] QT-Interval (MSEC) 362 ms [facility] QTc 454 ms [facility] P [place] 78 degrees [facility] R [place] 52 degrees [facility] T [place] 64 degrees [facility] Diagnosis Normal sinus rhythm with sinus arrhythmia Possible Left atrial enlargement Borderline ECG No previous ECGs available Confirmed by GRACIELA VALLES M.D. ([id number]) on 04/17/2024 5:09:53 PM [facility] 04/17/2024 2:49 PM ROTARY DRYER OPERATOR 04/17/2024 5:09 PM ROTARY DRYER OPERATOR Abbie COLE ECG ORDERABLES Final Resu lt Performing Organization Address [facility] de Phone Number [facility] from Last 3 Months Insurance [place] [employer] Care Teams Microsoft Access Developer Relationship Specialty Start Date End Date Farhat Hodge MD [facility] [place] [address] PCP - General Family Medicine 04/24/18
--- OUTSIDE RECORDS SUMMARY | 2024-06-22 11:56 | XMS_ITS | Referral Summary ---
Author Organization [facility] [employer] Address [address] [place] [address] Care Team Providers Care Occasional Caregiver Name Role Phone Farhat Hodge MD Primary Care Provider [phone] Source Comments [facility],non-owned Affiliates and Associated Physician Practices is amultiple site organization consisting of ambulatory clinics and hospital sitesin [place], [place], [place] and [place]. This disclosure is being madepursuant to the Care Everywhere program and may not contain all information available regarding this patient. Last updated 18.[facility] [employer] Allergies Active Allergy Reactions Criticality Noted Date [...] triamcinolone (NASACORT AQ) 55 MCG/ACT nasal inhaler [place] 1 [place] into each nostril once daily Active ALPRAZolam [...] 03/06/2016 2:24 PM CDT Plan of Treatment Not on file Care Teams Occasional Caregiver Relationship Specialty Start Date End Date Farhat Hodge MD [facility] [place] [address] PCP - General Family Medicine 03/06/16
[2024-06-22 11:58] VITALS: BP 164/77; PULSE 114; RESP 14; TEMP 36.6; O2SAT 100
[2024-06-22 12:17] LABS: EDSTREPNEGPOS1 Negative (Negative)
--- NOTE | 2024-06-22 12:36 | ED.URI ---
HPI - URI/Sore Throat General Chief Complaint: Upper Respiratory Infection Stated Complaint: throat sore and tight Time Seen by Provider: 06/22/24 12:36 Source: patient, RN notes reviewed and old records reviewed Mode of arrival: ambulatory Limitations: no limitations History of Present Illness HPI Narrative: Patient presents with complaints of sore throat since Sunday. She reports that initially she felt as though perhaps she had a sore throat because she had burned her mouth on some food. Than sore throat continued to linger. She has been taking Tylenol for her symptoms with no relief. She is able to eat and drink, she is able to manage her own secretions. No wheezing, drooling, stridor noted. Related Data Home Medications ?Medication ?Instructions ?Recorded ?Confirmed ?Last Taken ?Type L norgest/E estradiol-E estrad 06/22/24 Unknown History 0.15 mg-30 mcg (84)/10 mcg(7) tabs,3mos (Simpesse) albuterol sulfate 90 mcg/actuation inhalation 06/22/24 Unknown History aerosol inhaler alprazolam 1 mg tablet mg 06/22/24 Unknown History buspirone 15 mg tablet mg 06/22/24 Unknown History escitalopram oxalate 10 mg tablet mg 06/22/24 Unknown History fluticasone propionate 50 intranasal 06/22/24 Unknown History mcg/actuation nasal spray,suspension losartan 25 mg tablet mg 06/22/24 Unknown History metoprolol succinate 25 mg mg PO 06/22/24 Unknown History tablet,extended release 24 hr montelukast 10 mg tablet mg 06/22/24 Unknown History omeprazole 20 mg capsule,delayed mg 06/22/24 Unknown History release Allergies Allergy/AdvReac Type Severity Reaction Status Date / Time Sulfa (Sulfonamide Allergy Unknown Unknown Verified 06/22/24 12:05 Antibiotics) Review of Systems Review of Systems: All systems reviewed & are unremarkable except as noted in HPI and below Constitutional: Constitutional: Reports no additional constitutional complaints ENT: Reports system reviewed and no additional complaints, except as documented and Reports sore throat Cardiovascular: Cardiovascular: Reports no additional cardiovascular complaints Respiratory: Respiratory: Reports no additional respiratory complaints Gastrointestinal: Gastrointestinal: Reports no additional gastrointestinal complaints PMFSH Comments At the time of my signature, I reviewed and agree with the nursing past medical, surgical, social, and family history. There is no relevant family history pertinent to the patient complaint. Exam Const: General: cooperative, no acute distress, alert and awake Orientation/consciousness: oriented to person, oriented to place and oriented to time HENMT: Head: normal to inspection Ears: TM's normal bilaterally Throat: posterior oropharynx abnormal erythema and other (tonsils not visible) Resp: Effort & Inspection: normal respiratory effort and able to speak in complete sentences Auscultation: clear to auscultation bilaterally, no crackles, no rales, no rhonchi and no wheezes Cardio: Palpation: normal PMI Rate: regular rate Rhythm: regular rhythm Heart sounds: S1 normal heart sound present and S2 normal heart sound present Neuro: General: oriented to person, oriented to place and oriented to time Cranial nerves: Yes CN's II-XII intact bilaterally Psych: Appearance: grossly normal Thought process: Normal thought process present Insight: Good insight present (Psych) Judgement: Good judgement present (Psych) Course Course Level of Care: Express Care Visit Vital Signs Vital signs: Vital Signs Temperature 97.8 F 06/22/24 11:58 Pulse Rate 114 H 06/22/24 11:58 Respiratory Rate 14 06/22/24 11:58 Blood Pressure 164/77 H 06/22/24 11:58 Pulse Oximetry 100 06/22/24 11:58 Oxygen Delivery Room Air 06/22/24 11:58 Temperature 97.8 F 06/22/24 11:58 Pulse Rate 114 H 06/22/24 11:58 Respiratory Rate 14 06/22/24 11:58 Blood Pressure 164/77 H 06/22/24 11:58 Pulse Oximetry 100 06/22/24 11:58 Oxygen Delivery Room Air 06/22/24 11:58 Reviewed MDM - URI/Sore Throat MDM Narrative Medical decision making narrative: Patient with reassuring physical exam. She does have some redness to the throat, but tonsils are not visible. There is no swelling noted. She was given prednisone to treat her symptoms in light of the fact that ddlr-noa-klsfzgn medications are not working for her. She is encouraged follow-up with her primary care provider, emergency department precautions discussed multiple times Discharge instructions reviewed with patient, as well as provided in writing per nursing staff. The instructions also include specific and strict return/GO TO THE ER as well as f/u information. All questions have been answered, and the patient deny any further questions with discharge and discharge plan. Some parts of this dictation were generated by voice recognition software and may contain typographical and/or grammatical inaccuracies. Differential Diagnosis Differential diagnosis: Likely upper respiratory infection, viral infection and pharyngitis Medical Records Attestation: I reviewed the patient's medical records. Lab Data Attestation: I reviewed the patient's lab results. Labs: Lab Results 06/22/24 Range/Units 12:06 POC Grp A Strep Screen Negative (Negative) Discharge Plan Discharge Clinical Impression: Upper respiratory infection Qualifiers: URI type: unspecified viral URI Qualified Code(s): J06.9 - Acute upper respiratory infection, unspecified Patient Disposition: Home, Self-Care Condition: Stable Instructions: Antibiotic Form, Cold Symptoms (ED) Additional Instructions: take medications as prescribed. Follow-up with primary care provider. Emergency department for new or worsening symptoms. Blood pressure and pulse are elevated today. This could be secondary to pain and anxiety. In either case, it is very important to follow-up with your primary regarding these things. Patient Language: Fijian Prescriptions: New prednisone 50 mg tablet 50 mg PO DAILY Qty: 5 0RF No Action alprazolam 1 mg tablet losartan 25 mg tablet omeprazole 20 mg capsule,delayed release(DR/EC) montelukast 10 mg tablet metoprolol succinate 25 mg tablet extended release 24 hr PO albuterol sulfate 90 mcg/actuation HFA aerosol inhaler INHALATION fluticasone propionate 50 mcg/actuation spray,suspension INTRANASAL buspirone 15 mg tablet escitalopram oxalate 10 mg tablet L norgest/e.estradiol-e.estrad [[place]pes[place]] 0.15 mg-30 mcg (84)/10 mcg (7) tablets,dose pack,3 month Follow-up/Referrals: Ayesha,Farhat Yoon MD [Primary Care Provider] - 3 Days Time of Disposition: 12:46
== END 2024-06-22 13:04 | disposition home or self-care (01) ==
PROVIDERS: Emergency Provider Nurse Practitioner Family; PCP Family Medicine
DX: J06.9 Acute upper respiratory infection, unspecified (principal); I10 Essential (primary) hypertension
CPT/HCPCS: 87081; 87880; 99203; G0463